=== PATIENT | female | born 1980 | race Caucasian/White ===

== ENCOUNTER 2019-06-19 17:38 | Emergency (ER) | payer BC ==
[~2019-06-19] VITALS: Ht 165.1 cm; Wt 79.4 kg
[2019-06-19] MEDS ORDERED: NITROGLYCERIN SUBLINGUAL 0.4 MG BOTTLE OF 25. SL PRN (18:00)
[2019-06-19 18:03] LABS: BASO % 1 % (0-3); EOS # 0.1 x10^3/uL (0.0-0.7); EOS % 1 % (0-3); HEMATOCRIT 36.1 % (36.0-47.0); HEMOGLOBIN 12.6 g/dL (12.0-15.5); LYMPH # 3.1 x10^3/uL (1.0-4.8); LYMPH % 36 % (24-48); MEAN CORPUSCULAR HEMOGLOBIN 31 pg (25-35); MEAN CORPUSCULAR HGB CONC 35 g/dL (31-37); MEAN CORPUSCULAR VOLUME 90 fL (79-100); MONO # 0.6 x10^3/uL (0.0-1.1); MONO % 7 % (0-9); NEUT # 4.8 x10^3/uL (1.8-7.7); NEUT % 56 % (31-73); PLATELET COUNT 280 x10^3/uL (140-400); RED BLOOD COUNT 4.02 x10^6/uL (3.50-5.40); RED CELL DISTRIBUTION WIDTH 12.9 % (11.5-14.5); WHITE BLOOD COUNT 8.6 x10^3/uL (4.0-11.0)
[2019-06-19 18:11] LABS: BILIRUBIN,URINE NEGATIVE (NEG); CLARITY,URINE CLEAR; COLOR,URINE YELLOW; NITRITE,URINE NEGATIVE (NEG); PROTEIN,URINE NEGATIVE (NEG-TRACE); UROBILINOGEN,URINE 0.2 mg/dL (0.2 mg/dL)
[2019-06-19 18:15] LABS: CALCIUM 9.6 mg/dL (8.5-10.1); CREATININE 0.8 mg/dL (0.6-1.0); GFR 79.4; POTASSIUM 4.2 mmol/L (3.5-5.1)
[2019-06-19 18:16] LABS: BACTERIA,URINE MANY /HPF (0-FEW); RBC,URINE OCC /HPF (0-2); SQUAMOUS EPITHELIAL CELL,UR MOD /LPF
[2019-06-19 18:19] LABS: BARBITURATES NEG (NEG); BENZODIAZEPINES NEG (NEG); CANNABINOIDS NEG (NEG); COCAINE NEG (NEG); METHADONE NEG (NEG); OPIATES NEG (NEG); PHENCYCLIDINE NEG (NEG)
[2019-06-19 18:21] LABS: AMPHETAMINE/METHAMPHETAMINE NEG (NEG)
[2019-06-19 18:24] LABS: ALBUMIN 4.5 g/dL (3.4-5.0); ALBUMIN/GLOBULIN RATIO 1.2 (1.0-1.7); TOTAL BILIRUBIN 0.4 mg/dL (0.2-1.0); TOTAL PROTEIN 8.2 g/dL (6.4-8.2)
[2019-06-19] MEDS ORDERED: TRAZ-118 PO (18:34)
[2019-06-19] MEDS ORDERED: BUSP15TA PO (18:34)
[2019-06-19] MEDS ORDERED: FLUO40CA2 PO (18:34)
[2019-06-19 18:47] LABS: CREATINE KINASE 41 U/L (26-192)
[2019-06-19 19:14] VITALS: BP 99/59
--- NOTE | 2019-06-19 19:44 | PHYS DOC ---
Past Medical History Past Medical History: Anxiety, Depression Past Surgical History: Tonsillectomy, Other Additional Past Surgical Histo: multiple eye surgeries, adenoidectomy Alcohol Use: Occasionally Drug Use: None Adult General Chief Complaint Chief Complaint: CHEST PAIN HPI HPI Patient is a 39 year old female with history of depression, anxiety, who presents to the ED today complaining of a sharp intermittent 7 out of 10 left- sided chest pain that has been going on intermittently for 5 days. Patient denies anything specific any exacerbating or relieving the pain. She states she was seen at [facility] emergency room 5 days ago on the onset of symptoms, she states they did a full workup and they could not find an acute cause for her pain, she states she was discharged to home. She states she was also seen by the PCP could not find any acute cause for her pain. She presents to the ED today stating the pain occurred at 1650 with shortness of breath and dizziness, she states she felt the pain radiates to her neck and left jaw. She states she has an appointment with a medical radiation tech sometimes in June. Review of Systems Review of Systems Constitutional: Denies fever or chills [] Eyes: Denies change in visual acuity, redness, or eye pain [] HENT: Denies nasal congestion or sore throat [] Respiratory: Reports shortness of breath. Denies shortness of breath [] Cardiovascular: Reports left-sided chest pain GI: Denies abdominal pain, nausea, vomiting, bloody stools or diarrhea [] : Denies dysuria or hematuria [] Musculoskeletal: Denies back pain or joint pain [] Integument: Denies rash or skin lesions [] Neurologic: Denies headache, focal weakness or sensory changes [] All other systems were reviewed and found to be within normal limits, except as documented in this note. Current Medications Current Medications Current Medications Medications (Trade) Dose Ordered Sig/Beltran Start Time Stop Time Status Last Admin Dose Admin Nitroglycerin (Nitrostat) 0.4 mg PRN Q5MIN PRN 06/19/19 18:00 06/20/19 17:59 Allergies Allergies Allergies Coded Allergies Type Severity Reaction Last Updated Verified No Known Drug Allergies 06/19/19 No Physical Exam Physical Exam Constitutional: Well developed, well nourished, no acute distress, non-toxic appearance. [] HENT: Normocephalic, atraumatic, bilateral external ears normal, oropharynx moist, no oral exudates, nose normal. [] Eyes: PERRLA, EOMI, conjunctiva normal, no discharge. [] Neck: Normal range of motion, no tenderness, supple, no stridor. [] Cardiovascular:Heart rate regular rhythm, no murmur [] Lungs & Thorax: Bilateral breath sounds clear to auscultation [] Abdomen: Bowel sounds normal, soft, no tenderness, no masses, no pulsatile mas ses. [] Skin: Warm, dry, no erythema, no rash. [] Back: No tenderness, no CVA tenderness. [] Extremities: No tenderness, no cyanosis, no clubbing, ROM intact, no edema. [] Neurologic: Alert and oriented X 3, normal motor function, normal sensory function, no focal deficits noted. [] Psychologic: Affect normal, judgement normal, mood normal. [] Current Patient Data Vital Signs Vital Signs Date Time Temp Pulse Resp B/P (MAP) Pulse Ox O2 Delivery O2 Flow Rate FiO2 06/19/19 18:45 50 20 94/57 (69) 99 Room Air 06/19/19 17:41 98.2 98.2 Lab Values Laboratory Tests Test 06/19/19 17:55 06/19/19 18:00 White Blood Count 8.6 x10^3/uL (4.0-11.0) Red Blood Count 4.02 x10^6/uL (3.50-5.40) Hemoglobin 12.6 g/dL (12.0-15.5) Hematocrit 36.1 % (36.0-47.0) Mean Corpuscular Volume 90 fL (79-100) Mean Corpuscular Hemoglobin 31 pg (25-35) Mean Corpuscular Hemoglobin Concent 35 g/dL (31-37) Red Cell Distribution Width 12.9 % (11.5-14.5) Platelet Count 280 x10^3/uL (140-400) Neutrophils (%) (Auto) 56 % (31-73) Lymphocytes (%) (Auto) 36 % (24-48) Monocytes (%) (Auto) 7 % (0-9) Eosinophils (%) (Auto) 1 % (0-3) Basophils (%) (Auto) 1 % (0-3) Neutrophils # (Auto) 4.8 x10^3/uL (1.8-7.7) Lymphocytes # (Auto) 3.1 x10^3/uL (1.0-4.8) Monocytes # (Auto) 0.6 x10^3/uL (0.0-1.1) Eosinophils # (Auto) 0.1 x10^3/uL (0.0-0.7) Basophils # (Auto) 0.0 x10^3/uL (0.0-0.2) D-Dimer (Vianna) 0.35 ug/mlFEU (0.00-0.50) Sodium Level 140 mmol/L (136-145) Potassium Level 4.2 mmol/L (3.5-5.1) Chloride Level 102 mmol/L (98-107) Carbon Dioxide Level 27 mmol/L (21-32) Anion Gap 11 (6-14) Blood Urea Nitrogen 21 mg/dL (7-20) H Creatinine 0.8 mg/dL (0.6-1.0) Estimated GFR (Cockcroft-Gault) 79.4 BUN/Creatinine Ratio 26 (6-20) H Glucose Level 89 mg/dL (70-99) Calcium Level 9.6 mg/dL (8.5-10.1) Magnesium Level 2.0 mg/dL (1.8-2.4) Total Bilirubin 0.4 mg/dL (0.2-1.0) Aspartate Amino Transferase (AST) 16 U/L (15-37) Alanine Aminotransferase (ALT) 14 U/L (14-59) Alkaline Phosphatase 53 U/L (46-116) Creatine Kinase 41 U/L (26-192) Creatine Kinase MB (Mass) < 0.5 ng/mL (0.0-3.6) Creatine Kinase MB Relative Index % (0-4) Troponin I Quantitative < 0.017 ng/mL (0.000-0.055) PD-Vnp-Q-Type Natriuretic Peptide 138 pg/mL (0-124) H Total Protein 8.2 g/dL (6.4-8.2) Albumin 4.5 g/dL (3.4-5.0) Albumin/Globulin Ratio 1.2 (1.0-1.7) Thyroid Stimulating Hormone (TSH) 3.264 uIU/mL (0.358-3.74) Ethyl Alcohol Level < 10 mg/dL (0-10) Urine Collection Type Unknown Urine Color Yellow Urine Clarity Clear Urine pH 8.0 Urine Specific [place] 1.025 Urine Protein Negative mg/dL (NEG-TRACE) Urine Glucose (UA) Negative mg/dL (NEG) Urine Ketones (Stick) Negative mg/dL (NEG) Urine Blood Negative (NEG) Urine Nitrite Negative (NEG) Urine Bilirubin Negative (NEG) Urine Urobilinogen Dipstick 0.2 mg/dL (0.2 mg/dL) Urine Leukocyte Esterase Moderate (NEG) Urine RBC Occ /HPF (0-2) Urine WBC 11-20 /HPF (0-4) Urine Squamous Epithelial Cells Mod /LPF Urine Bacteria Many /HPF (0-FEW) Urine Mucus Mod /LPF Urine Opiates Screen Neg (NEG) Urine Methadone Screen Neg (NEG) Urine Barbiturates Neg (NEG) Urine Phencyclidine Screen Neg (NEG) Urine Amphetamine/Methamphetamine Neg (NEG) Urine Benzodiazepines Screen Neg (NEG) Urine Cocaine Screen Neg (NEG) Urine Cannabinoids Screen Neg (NEG) Urine Ethyl Alcohol Neg (NEG) Laboratory Tests 06/19/19 17:55 Laboratory Tests 06/19/19 17:55 EKG EKG [address] Terrell sinus rate them heart rate 52 no STEMI Radiology/Procedures Radiology/Procedures [] Course & Med Decision Making Course & Med Decision Making Pertinent Labs and Imaging studies reviewed. (See chart for details) This is a 39-year-old female patient presented to the ED today complaining of chest pain that began 5 days ago, patient was seen in a different ED 5 days ago, had a negative workup, was seen by the PCP, had a negative workup presents today with the same complaint. Her cardiac workup is negative, heart score d ocumented on the template 0. D/c to home. Dragon Disclaimer Dragon Disclaimer This electronic medical record was generated, in whole or in part, using a voice recognition dictation system. The HEART Score for CP Pts HEART Score for Chest Pain: HEART Score for Chest Pain Response (Comments) Value History Slighlty/Non-Suspicious 0 ECG Normal 0 Age < 45 0 Risk Factors No Risk Factors 0 Troponin < Normal Limit 0 Total 0 Risk Factors: Risk Factors: DM, Current or recent (<one month) smoker, HTN, HLP, family history of CAD, obesity. Risk Scores: Score 0 - 3: 2.5% MACE over next 6 weeks - Discharge Home Score 4 - 6: 20.3% MACE over next 6 weeks - Admit for Clinical Observation Score 7 - 10: 72.7% MACE over next 6 weeks - Early Invasive Strategies Departure Departure Impression: Primary Impression: Chest pain Disposition: HOME, SELF-CARE Condition: STABLE Referrals: UNKNOWN PCP NAME (PCP) JUANCHO SRINIVASAN MD follow up next week Patient Instructions: Chest Pain (Nonspecific), [id number] Additional Instructions: You were evaluated in the ER for chest pain, your cardiac workup is negative, follow-up with your own medical radiation tech as well as primary care doctor next week. Problem Qualifiers Primary Impression: Chest pain Chest pain type: unspecified Qualified Codes: R07.9 - Chest pain, unspecified LES YOUNG [employer] Jun 19, 2019 19:44
--- NOTE | 2019-06-19 22:29 | RAD ---
PORTABLE CHEST 1V INDICATION: Chest pain. COMPARISON STUDY: None. FINDINGS: Lungs: Normal lung volume. No pulmonary mass or consolidation. The tracheobronchial tree and hilar structures are normal. Pleura: No pleural effusion or pneumothorax. Heart and Mediastinum: The cardiomediastinal silhouette is normal. The great vessels of the thorax are normal. IMPRESSION: No acute cardiopulmonary process. Electronically signed by: Milan Sanon MD (06/19/2019 10:26 PM) [facility]
--- NOTE | 2019-06-20 05:11 | EKG ---
[facility] [address] [place] [address] Test Date: 2019-06-19 Test Time: 17:46:34 Pat Name: REGIS KRISHNA Department: Room: Gender: Female Legal Activity Adjudicator: LISSY : 1980 Requested By: LES YOUNG Order Number: [id number] Reading MD: Saran Mac MD Measurements Intervals [place] Rate: 51 P: 11 OK: 180 QRS: -22 QRSD: 74 T: 20 QT: 474 QTc: 442 Interpretive Statements SINUS RHYTHM Electronically Signed On 06-26-2019 16:33:49 CDT by Saran Mac MD
== END 2019-06-19 20:15 | disposition home or self-care (01) ==
LOC: ER 17:38
DX: R07.89 Other chest pain (principal); R06.02 Shortness of breath; R42 Dizziness and giddiness; F32.9 Major depressive disorder, single episode, unspecified; F41.9 Anxiety disorder, unspecified
CPT/HCPCS: 36415; 71045; 80053; 80307; 81001; 82553; 83735; 83880; 84443; 84484; 85025; 85379; 93005; 99285; G0480